=== PATIENT | female | born 1970 | race Caucasian/White ===

== ENCOUNTER 2017-06-20 09:17 | Emergency (ER) | payer OTHER ==
[~2017-06-20] VITALS: Ht 167.6 cm; Wt 59.0 kg
[2017-06-20 09:17] VITALS: BP 132/65
== END 2017-06-20 10:05 | disposition home or self-care (01) ==
LOC: ER 09:21
DX: B86 Scabies (principal)
CPT/HCPCS: 99282; A4606; Z7610

== ENCOUNTER 2017-06-27 09:30 | Emergency (ER) | payer OTHER ==
[~2017-06-27] VITALS: Ht 167.6 cm; Wt 59.0 kg
[2017-06-27] MEDS ORDERED: AMPHETAMINE ×2 (09:43)
[2017-06-27] MEDS ORDERED: ESCITALOPRAM TAB 10MG (09:43)
[2017-06-27] MEDS ORDERED: DEXTROAMPHETAMINE ×2 (09:43)
[2017-06-27 10:19] LABS: BASOPHILS % (AUTO) 0.2 % (0.0-2.0); EOSINOPHILS # (AUTO) 0.1 /CMM (0.0-0.7); EOSINOPHILS % (AUTO) 1.4 % (0.0-6.0); HEMATOCRIT 40 % (33-45); HEMOGLOBIN 13.2 g/dL (11.5-14.8); LYMPHOCYTES # (AUTO) 1.3 /CMM (0.8-4.8); LYMPHOCYTES % (AUTO) 26.2 % (20.0-44.0); MEAN CORPUSCULAR HEMOGLOBIN 29 PG (26.0-33.0); MEAN CORPUSCULAR HGB CONC 33 g/dl (31.0-36.0); MEAN CORPUSCULAR VOLUME 89 fL (82-100); MONOCYTES # (AUTO) 0.6 /CMM (0.1-1.30); MONOCYTES % (AUTO) 11.1 % (2.0-12.0); NEUTROPHILS # (AUTO) 3.1 /CMM (1.8-8.9); NEUTROPHILS % (AUTO) 61.1 % (43.0-81.0); PLATELET COUNT (AUTO) 354 /CMM (150-450); RDW COEFFICIENT OF VARIATION 13.8 (11.5-15.0); RED BLOOD CELL COUNT(AUTO) 4.53 MIL/uL (4.0-5.2)
[2017-06-27 10:43] LABS: CALCIUM, SERUM 9.6 mg/dL (8.5-10.1); CARBON DIOXIDE 33 mmol/L (21-32); CHLORIDE 104 mmol/L (98-107); CREATININE 0.7 mg/dL (0.6-1.3); GLUCOSE 99 mg/dL (74-106); POTASSIUM 4.8 mmol/L (3.5-5.1); SODIUM SERUM 141 mmol/L (136-145); UREA NITROGEN, BLOOD 12 mg/dL (7-18)
[2017-06-27 10:50] LABS: TROPONIN I < 0.017 ng/mL (0.00-0.056)
[2017-06-27 10:52] LABS: ALANINE AMINOTRANSFERASE 88 U/L (12-78); ALBUMIN 4.2 g/dL (3.4-5.0); ALKALINE PHOSPHATASE 90 U/L (46-116); ASPARTATE AMINOTRANSFERASE 69 U/L (15-37); BILIRUBIN,DIRECT 0.1 mg/dL (0.0-0.2); BILIRUBIN,TOTAL 0.4 mg/dL (0.2-1.0); TOTAL PROTEIN, SERUM 7.8 g/dL (6.4-8.2)
--- NOTE | 2017-06-27 11:00 | NUR ---
ASSUME PT CARE. RESTING IN BED. CALM. DENIES CP AT THIS TIME. VSS. SEEN BY DENG. WILL CONTINUE TO MONITOR.
--- NOTE | 2017-06-27 11:34 | NUR ---
Patient discharged to home in stable condition. Written and verbal after care instructions given. Patient verbalizes understanding of instruction.IV removed. Catheter intact and site benign. Pressure and 4x4 applied to site. No bleeding noted.
[2017-06-27 11:35] VITALS: BP 140/99
== END 2017-06-27 11:35 | disposition home or self-care (01) ==
LOC: ER 09:32
DX: R07.89 Other chest pain (principal); R74.0 Nonspecific elevation of levels of transaminase and lactic acid dehydrogenase [LDH]; F41.9 Anxiety disorder, unspecified
CPT/HCPCS: 36415; 71010; 80048; 80076; 84484; 85025; 93005; 99285; A4606; Z7610

== ENCOUNTER 2020-06-23 08:35 | Emergency (ER) | payer OTHER ==
[~2020-06-23] VITALS: Ht 167.6 cm; Wt 61.2 kg
[~2020-06-23 08:35] MED LIST: AMPHETAMINE; DEXTROAMPHETAMINE; ESCITALOPRAM TAB 10MG
[2020-06-23 08:49] VITALS: BP 146/97
== END 2020-06-23 09:07 | disposition home or self-care (01) ==
LOC: ER 08:41
DX: H93.13 Tinnitus, bilateral (principal); I10 Essential (primary) hypertension